=== PATIENT | female | born 1975 | race Caucasian/White ===

== ENCOUNTER 2018-06-24 10:44 | Outpatient (CLI) | payer BC, SELFPAY ==
[2018-06-24 12:53] LABS: TSH (W/Ref FT4) 0.27 uIU/mL (0.358-3.74)
[2018-06-24 13:31] LABS: FREE T4 1.25 ng/dL (0.76-1.46)
== END 2018-06-24 11:04 ==
LOC: LBO 10:45 → LOS 12:39
PROVIDERS: PCP Family Medicine; Visit Provider Family Medicine
DX: E03.9 Hypothyroidism, unspecified (principal)
CPT/HCPCS: 36415; 84439; 84443

== ENCOUNTER 2018-08-31 09:14 | Outpatient (CLI) | payer BC, SELFPAY ==
[2018-08-31 13:28] LABS: TSH (W/Ref FT4) 0.11 uIU/mL (0.358-3.74)
[2018-08-31 13:55] LABS: FREE T4 1.49 ng/dL (0.76-1.46)
== END 2018-08-31 09:34 ==
PROVIDERS: PCP Family Medicine; Visit Provider Family Medicine
DX: E03.9 Hypothyroidism, unspecified (principal)
CPT/HCPCS: 36415; 84439; 84443

== ENCOUNTER 2019-12-23 12:32 | Outpatient (CLI) | payer BC, SELFPAY ==
[2019-12-23 16:26] LABS: TSH (W/Ref FT4) 0.32 uIU/mL (0.36-3.74)
[2019-12-23 16:44] LABS: FREE T4 1.47 ng/dL (0.76-1.46)
== END 2019-12-23 12:52 ==
PROVIDERS: PCP Family Medicine; Visit Provider Family Medicine
DX: E09.39 Drug or chemical induced diabetes mellitus with other diabetic ophthalmic complication (principal)
CPT/HCPCS: 36415; 84439; 84443

== ENCOUNTER 2020-04-13 02:55 | Outpatient (CLI) | payer BC, SELFPAY ==
[2020-04-13 17:18] LABS: Calculated LDL 114 mg/dL (<100); Cholesterol 187 mg/dL (<200); Glucose 105 mg/dL (74-106); HDL Cholesterol 50 mg/dL (40-60); TSH (W/Ref FT4) 1.85 uIU/mL (0.36-3.74); Triglyceride 116 mg/dL (<150)
== END 2020-04-13 03:15 ==
PROVIDERS: PCP Family Medicine; Visit Provider Family Medicine
DX: E03.9 Hypothyroidism, unspecified (principal); E78.5 Hyperlipidemia, unspecified; E66.9 Obesity, unspecified
CPT/HCPCS: 36415; 80061; 82947; 84443

== ENCOUNTER 2020-09-18 10:18 | Outpatient (CLI) | payer BC, SELFPAY ==
[2020-09-20 00:48] LABS: Patient Race White; SARS-CoV-2 RNA Undetected (Undetected); SARS-CoV-2 Specimen Source Nasal
== END 2020-09-18 10:38 ==
PROVIDERS: PCP Family Medicine; Visit Provider Family Medicine
DX: Z11.59 Encounter for screening for other viral diseases (principal)
CPT/HCPCS: U0003

== ENCOUNTER 2021-06-12 05:03 | Outpatient (CLI) | payer BC, SELFPAY ==
[2021-06-12 12:28] LABS: TSH 0.26 uIU/mL (0.36-3.74)
[2021-06-12 13:01] LABS: FREE T4 1.26 ng/dL (0.76-1.46)
== END 2021-06-12 05:04 | disposition home or self-care (01) ==
LOC: LBO 05:03
PROVIDERS: PCP Family Medicine; Visit Provider Internal Medicine Hematology & Oncology
DX: E89.0 Postprocedural hypothyroidism (principal)
CPT/HCPCS: 36415; 84439; 84443

== ENCOUNTER 2021-06-13 11:00 | Outpatient (CLI) | payer BC, SELFPAY ==
[2021-06-13 12:45] LABS: ESR 15 mm/hr (0-20)
[2021-06-13 12:55] LABS: C-Reactive Protein 0.49 mg/dL (0.0-0.3)
[2021-06-13 18:01] LABS: FSH 6.9 mIU/mL (See Note); LH 7.6 mIU/mL (See Note)
== END 2021-06-13 11:01 | disposition home or self-care (01) ==
LOC: LOS 11:00
PROVIDERS: PCP Family Medicine; Referring Provider Family Medicine; Visit Provider Family Medicine
DX: R41.89 Other symptoms and signs involving cognitive functions and awareness (principal); R23.2 Flushing; N95.1 Menopausal and female climacteric states; M25.59 Pain in other specified joint
CPT/HCPCS: 36415; 85652; 83001; 83002; 86140

== ENCOUNTER 2022-09-20 16:24 | Outpatient (REF) | payer BC, SELFPAY ==
--- NOTE | 2022-09-20 15:45 | PAPFT_PTH ---
PATIENT: Imani Hdez LOC: N U#:[id number] AGE/SX: 47/F ROOM: RE09/20/[address]: Deepa Briones : 1975 BED: DIS: 09/20/2022 SPEC #: [id number] RECD: 09/20/22 17:31 STATUS: MORIAH REQ #: [id number] MANUELITO: 09/20/22 15:[address]: Deepa Briones DEPT: [facility] Cyt[facility] RECD BY: Fabi Betancur ENTERED: 09/20/22 17:32 SP TYPE: PAPFT OTHR DR: Nir Gandara MD Tissues: 1 - CX/ENDOCX FOR PAP SMEARS Procedures: PAP THIN PREP/UVM Screening Comments: [id number]
== END 2022-09-20 16:25 | disposition home or self-care (01) ==
LOC: LBN 16:24
PROVIDERS: PCP Family Medicine; Visit Provider Advanced Practice Midwife
DX: Z12.4 Encounter for screening for malignant neoplasm of cervix (principal)
CPT/HCPCS: 88142

== ENCOUNTER → 2022-10-02 00:59 | Outpatient (CLI) | payer BC, SELFPAY ==
--- NOTE | 2022-10-02 07:45 | DI.MAMMO_ITS ---
Exam(s) MAMMO SCREENING EXAM: MAMMO SCREENING CLINICAL HISTORY: screening TECHNIQUE: Bilateral full field digital CC and MLO mammographic images were obtained with 3D tomosyn thesis and utilizing computer aided detection (CAD). COMPARISON: Available for comparison. FINDINGS: Masses/Architectural Distortion: None seen. Microcalcifications: No suspicious pleomorphic-type are seen. Skin Thickening/Nipple Retraction: None. IMPRESSION: 1. No significant interval change with no specific features of malignancy noted. 2. Unless there is more urgent need, screening mammography is recommended, as per [employer] guidelines. BI-RADS Category 1 - Negative Breast Density - Category B - Scattered areas of fibroglandular density Breast density category C or D implies that the patient has dense breast tissue. Dense breast tissue is very common and is not abnormal but dense breast tissue can make it harder to find cancer on a ma mmogram. Also, dense breast tissue may increase their breast cancer risk. This information about the result of the mammogram report was provided to the patient to raise their awareness. Use this report when you speak with the patient about their risks for breast cancer, which includes their family hist ory. At that time, you may recommend for more screening tests (Ultrasound or MRI) as they might be us eful based on their risk. A negative radiographic report should not delay biopsy if a dominant or clinically suspicious mass is present. Up to ten percent of cancers are not identified on mammography. A negative report may reinforce clinical impression. Adenosis and dense breasts may obscure an underlying neoplasm. False positive reports average 6 to 10%. Patient will receive a letter notifying them of these results.
== END ==
PROVIDERS: PCP Family Medicine; Visit Provider Advanced Practice Midwife
DX: Z12.31 Encounter for screening mammogram for malignant neoplasm of breast (principal)
CPT/HCPCS: 77063; 77067

== ENCOUNTER 2022-11-07 04:01 | Outpatient (CLI) | payer BC, SELFPAY ==
[2022-11-07 17:41] LABS: TSH (W/Ref FT4) 0.28 uIU/mL (0.36-3.74)
[2022-11-07 18:02] LABS: FREE T4 1.28 ng/dL (0.76-1.46)
== END 2022-11-07 04:02 | disposition home or self-care (01) ==
PROVIDERS: PCP Family Medicine; Visit Provider Family Medicine
DX: E03.9 Hypothyroidism, unspecified (principal)
CPT/HCPCS: 36415; 84439; 84443

== ENCOUNTER 2023-01-08 07:45 | Day surgery (SDC) | payer BC, SELFPAY ==
--- NOTE | 2023-01-07 14:48 | ANES.PREOP_ITS ---
General Info Date of Service Date Performed: 01/08/23 Height: 5 ft 6 in Weight: 127.119 kg Body Mass Index (BMI): 45.2 Surgical Procedure: Operation Date: 01/08/23 08:35 Proposed Procedure Side Surgeon p Gastroscopy Kellen Barnett MD Meds Allergies and Home Medications Allergies Allergy/AdvReac Type Severity Reaction Status Date / Time No Known Drug Allergies Allergy Verified 01/08/23 08:06 Home Medication Medication Instructions Recorded ipratropium bromide 42 mcg (0.06 2 spray intranasal TID PRN runny 01/22/ %) nasal spray nose #15 mL clotrimazole-betamethasone 1 1 applic topical BID PRN 05/12/ %-0.05 % topical cream intertrigo--breasts/axilla #45 grams cyanocobalamin (vitamin B-12) 1,000 mcg PO DAILY 06/13/21 1,000 mcg tablet (Vitamin B-12) ibuprofen 800 mg tablet 800 mg PO Q8H PRN pain #90 tabs 12/21/21 lorazepam 0.5 mg tablet 0.5 mg PO DAILY PRN anxiety #10 04/27/22 tabs fluoxetine 40 mg capsule 40 mg PO DAILY #90 caps 09/20/22 magnesium 200 mg tablet 200 mg PO DAILY 09/20/22 levothyroxine 150 mcg tablet 150 mcg PO .qod #45 tabs 11/08/22 levothyroxine 175 mcg tablet 175 mcg PO .qod #45 tabs 11/08/22 semaglutide (weight loss) 0.25 0.25 mg (0.5 mL) subcut QWEEK #2 mL 12/24/22 mg/0.5 mL subcutaneous pen injector (Wegovy) semaglutide (weight loss) 0.5 0.5 mg (0.5 mL) subcut QWEEK #2 mL 12/24/22 mg/0.5 mL subcutaneous pen injector (Wegovy) semaglutide (weight loss) 1 mg/0.5 1 mg (0.5 mL) subcut QWEEK #2 mL 12/24/22 mL subcutaneous pen injector (Wegovy) glycopyrrolate 2 mg tablet 2 mg PO TID hyperhydrosis #90 tabs 12/28/22 ondansetron 4 mg disintegrating 4 mg PO Q8H PRN nausea and 12/30/22 tablet vomiting #10 tabs PFSH Active Problems Active Problems: Problem Status Onset Code Barretts esophagus K22.70 History of thyroidectomy, total E89.0 Women's annual routine gynecological examination Z01.419 BMI 45.0-49.9, adult Z68.42 Medial epicondylitis, left elbow M77.02 Lateral epicondylitis of left elbow M77.12 Sebaceous cyst L72.3 Low back pain M54.50 Sweating Arthralgia M25.50 Sweats, menopausal N95.1 Mid back pain M54.9 Trochanteric bursitis of left hip M70.62 Trochanteric bursitis, right hip M70.61 Puncture wound T14.8XXA Dislocation of patellofemoral joint 04/16/12 S83.006A Follicular cyst of skin and subcutaneous tissue 08/24/13 L72.9 History of section Z98.891 Status post knee surgery Z98.890 Synovial cyst of popliteal space 04/16/12 M71.20 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 05/02/17 S72.492K IUD surveillance 05/20/13 Z30.431 Hypothyroidism 05/29/15 E03.9 Chronic pain of left knee M25.562, G89.29 Surgical History Surgical History section X 2 PROCEDURES Bxs on nodes in neck X 3 due to Hx Thyroid Ca Knee surgery 2012 Thyroid Removed - cancer Tobacco Smoking/Tobacco Use Status: Never Passive smoking exposure: No (NO) Alcohol Alcohol Intake: current Alcohol intake frequency: a few times a week Substance Use Substance use: Never Substance use type: does not use Vital Signs and Lab Results Vital Signs Most Recent Vital Signs in EMR: Temp Pulse Resp BP Pulse Ox 36.5 C 94 H 20 128/87 98 01/08/23 07:54 01/08/23 07:54 01/08/23 07:54 01/08/23 07:54 01/08/23 07:54 Lab Results Blood Type / Crossmatch: No Data to Display Complete Blood Count: No Data to Display Complete Metabolic Panel: No Data to Display Liver Function Panel: No Data to Display Coagulation Panel: No Data to Display Cardiac Panel: No Data to Display Arterial Blood Gas: No Data to Display Venous Blood Gas: No Data to Display Pancreas Panel: No Data to Display Thyroid Panel: No Data to Display Infectious Disease: No Data to Display Blood Cultures: No Data to Display Toxicology Panel: No Data to Display Panel: No Data to Display Anesthesia Assessment and Plan Anesthesia History Personal History: No History of Anesthesia Complications Family History: No Family History of Anesthesia Complications Exercise Tolerance Exercise Tolerance: Metabolic Equivalents>4 Cardiac & Pulmonary Exam Cardiac Exam: Normal S1/S2 Heart Sounds Pulmonary Exam: Clear Bilateral Breath Sounds Implantable Cardiac Device Does patient have a Pacemaker or an ICD?: No Airway Exam Known Difficult Airway: No Mallampati Class: 1 Mouth Opening: Normal (> 3cm) Thyromental Distance: Greater than 3 cm Neck Range of Motion: Full ROM Neck Circumference: Normal Teeth Condition: Normal Dentition ASA Classification ASA Score: ASA 3 Emergency Case?: No NPO Status NPO Status: NPO Clears >2 hours, Solids >8 hours Status Status: Negative HCG Anesthesia Plan Resuscitation Status: Full Code Anesthesia Technique: General Anesthesia Airway Planned: Natural Airway Monitors Used: Standard Monitors Preoperative Comments:: 47 yo female for EGD. Sig PMHx: barretts, hypothyroid (s/p thyroidectomy for CA, on replacement), chronic pain, never smoker, occ EtOH, BMI 45 (semaglutide). Previous Anes: - @[facility] mac 3 grade 1, easy mask (102 kg at the time).
[2023-01-08 07:54] VITALS: BP 128/87; PULSE 94; RESP 20; TEMP 36.5; O2SAT 98
[2023-01-08 08:07] VITALS: BMI 45.2
--- NOTE | 2023-01-08 08:12 | W.PM.DSUDISC ---
Date of service: 01/08/23 Time of Service: 09:32 Discharge Plan Disposition Patient Disposition: Home Condition: Good Discharge Details Reason For Visit: Surveillance EGD Attending Provider: Kellen Barnett Primary Care Provider: Nir Gandara Home Meds and New Rx's Prescriptions: New famotidine [Acid Night Coordinator (famotidine)] 20 mg tablet 20 mg PO BID Qty: 60 0RF Continued ipratropium bromide 42 mcg (0.06 %) spray,non-aerosol 2 spray ALON TID PRN (Reason: runny nose) Qty: 15 0RF Rx Instructions: administer into each nostril magnesium 200 mg tablet 200 mg PO DAILY fluoxetine 40 mg capsule 40 mg PO DAILY Qty: 90 3RF Wegovy 0.25 mg/0.5 mL pen injector 0.25 mg subcut QWEEK Qty: 2 0RF Rx Instructions: administer weeks 1 through 4 of therapy Wegovy 0.5 mg/0.5 mL pen injector 0.5 mg subcut QWEEK Qty: 2 0RF Rx Instructions: administer weeks 5 through 8 of therapy Wegovy 1 mg/0.5 mL pen injector 1 mg subcut QWEEK Qty: 2 0RF Rx Instructions: administer weeks 9 through 12 of therapy clotrimazole-betamethasone 1-0.05 % cream 1 applic TP BID PRN (Reason: intertrigo--breasts/axilla) Qty: 45 1RF cyanocobalamin (vitamin B-12) [Vitamin B-12] 1,000 mcg tablet 1,000 mcg PO DAILY ibuprofen 800 mg tablet 800 mg PO Q8H PRN (Reason: pain) Qty: 90 3RF lorazepam 0.5 mg tablet 0.5 mg PO DAILY PRN (Reason: anxiety) Qty: 10 0RF levothyroxine 175 mcg tablet 175 mcg PO .qod Qty: 45 3RF levothyroxine 150 mcg tablet 150 mcg PO .qod Qty: 45 3RF glycopyrrolate 2 mg tablet 2 mg PO TID Qty: 90 2RF ondansetron 4 mg tablet,disintegrating 4 mg PO Q8H PRN (Reason: nausea and vomiting) Qty: 10 0RF Discharge Instructions Instructions: Duodenitis (ED), Diet for Stomach Ulcers and Gastritis (ED), Gastritis (DC), Esophagitis (DC) Additional Instructions: Findings: inflammation in the small intestine, stomach and esophagus Follow up: 2 weeks Medication: Recommend taking pepcid 20 mg 2 x a day for just 30 days Please call if you develop: fevers >101.5 Nausea or Vomiting Abdominal pain that is not transient Rectal bleeding that is more then a tbsp A hard abdomen and inability to pass gas DAY SURGERY UNIT POST ENDOSCOPY INSTRUCTIONS Instructions for everyone who is given Anesthesia: For your safety, please do the following for the next 24 Hours: a. Do not drive or operate dangerous equipment b. Do not drink alcohol beverages or use any recreational drugs for the first 24 hours or while taking pain medications. The medications in your body may have a reaction that can be dangerous. c. Do not make any important decisions or sign any important papers 1. Generally there are no restrictions on your activity after a day or so has gone by, but you may feel a bit fatigued for a few days. 2. After you arrive home you may have a light meal and return to a normal diet as you can tolerate it without feeling sick to your stomach. 3. After surgery, you may feel pain or discomfort. This should be only transient, but if it persists please contact your doctor. 4. If there are any questions regarding the findings of your procedure, please feel free to contact your doctor. 6. If you are unable to contact your doctor with a problem, contact the hospital at [phone]. 7. Continue all your regular medications unless directed otherwise. I understand the above instructions and have no questions. Signature of Patient or Responsible Adult Escort Date/Time Name of Responsible Adult Escort Signature of Nurse Date/Time Stand Alone Forms: Anesthesia Discharge Inst., [facility] (DSU) Referrals: Kellen Barnett MD [ [facility] STAFF PHYSICIAN] - 01/21/23 8:00 am Activity:: Activity as Tolerated Diet:: As Tolerated Discharge Orders Discharge Orders: Discharge Order (Routine); Ordered 01/08/23 Ordered By: Kellen Barnett DS: Diagnosis Discharge Diagnosis (1) Barretts esophagus: Status: Acute
--- NOTE | 2023-01-08 08:13 | ENDO_ITS ---
Date of service: 01/08/23 Time of Service: 09:49 Endoscopy Report DATE OF PROCEDURE: 01/08/23 PRE-OP DIAGNOSIS: Hx of Beckham's POST-OP DIAGNOSIS: same (mild gastric and esophageal inflammation) PROCEDURE: EGD with biopsies SURGEON: Kellen Barnett ANESTHESIA TYPE: General:No Airway (Kevin Ladd, MAHESH) ESTIMATED BLOOD LOSS: 3 PATHOLOGY: other (duodenal bx, gastric and ge junction bx) COMPLICATIONS: None DISPOSITION: same day INDICATIONS: Mrs Hdez is a pleasant 47-year-old female who has a history of Beckham's esophagitis.? She is controlling her symptoms with diet.? She is working on weight loss.? Her last EGD was in 2019 and was negative for Beckham's.? We discussed the reason for doing another surveillance EGD.? I do feel that if this 1 is negative then we might be able to do surveillance less often.? We discussed the EGD in detail as well as the risks and benefits.? Risks, benefits and complications have been reviewed. Complications include but are not limited to bleeding, pain, perforation, sore throat, aspiration, and adverse reaction to the medications.? Questions were entertained and answered to their satisfaction and they wished to proceed. No guarantees were given or implied. FINDINGS: mild inflammation in the duodenum, stomach and at the GE junction PROCEDURE DESCRIPTION: After informed consent was obtained the patient was take to the procedure room and placed in a supine position. Monitors were applied and a time out was done. The patients name, date of , procedure type, allergies to medications and metal in their body was reviewed. A bite block was placed and the patient was sedated. Once sedated and comfortable the gastroscope was advanced through the oropharynx which was grossly normal into the esophagus. The proximal and mid- esophagus were normal. In the distal esophagus there was mild inflammation noted. The scope was advanced into the stomach and through the pylorus into the 3rd portion of the duodenum. The duodenum was noted to be mildly inflammed in the second portion. Biopsies were done. The scope was retracted back into the stomach and biopsies were done to rule out H. pylori. There were no ulcers. The scope was retroflexed. The cardia and fundus were noted to be normal. There was no hiatal hernia noted. The scope was retracted back into the esophagus and biopsies were done of the GE junction to rule out Beckham's. The Z line was regular. The GE junction was at 37 cm. The scope was removed and the patient was woken up and taken back to [facility] in stable condition. Follow up: 2 weeks
[2023-01-08] MEDS: Lactated Ringers 1,000 ML 80 ML IV (08:28)
--- NOTE | 2023-01-08 08:48 | STOM_PTH ---
PATIENT: Imani Hdez LOC: [facility] U#:[id number] AGE/SX: 47/F ROOM: RE01/08/[address]: Kellen Barnett MD : 1975 BED: DIS: 01/08/2023 SPEC #: [id number] RECD: 01/08/23 12:36 STATUS: MORIAH RE #: [id number] MANUELITO: 01/08/23 08:[address]: Kellen Barnett DEPT: Surgical Specimen RECD BY: Fabi Betancur ENTERED: 01/08/23 12:38 SP TYPE: STOMACH OTHR DR: Nir Gandara MD Tissues: 1 - BIOPSY BOWEL 2 - STOMACH BIOPSY 3 - STOMACH BIOPSY 4 - ESOPHAGUS BIOPSY Procedures: GROSS AND MICRO LEVEL 4 Comments: [id number]
[2023-01-08 09:06] VITALS: BP 110/77; PULSE 98; RESP 18; TEMP 36.6; O2SAT 95
--- NOTE | 2023-01-08 09:12 | W.ANESPOSTOP ---
Postoperative Evaluation Date, Time and Location Date Performed: 01/08/23 Time Performed: 09:12 Patient Location: Day Surgery Unit Vital Signs Most Recent Imported Vital Signs: Most Recent Vital Signs Temp Pulse Resp BP Pulse Ox 36.6 C 98 H 18 110/77 95 01/08/23 09:06 01/08/23 09:06 01/08/23 09:06 01/08/23 09:06 01/08/23 09:06 Pain Score Most Recent Pain Score: Most Recent Pain Score Pain Level 0 01/08/23 09:06 Assessment Mental Status: Awake (Alert & Oriented to Patient Baseline) Airway and Respiratory Function: Patent airway with normal (patient baseline) respiratory exam Cardiovascular Function: Hemodynamically Stable Hydration Status: Adequately Hydrated Nausea & Vomiting: No Nausea or Vomiting Pain: Pt. Denies Any Pain Peripheral Nerve Block: Patient did not receive a nerve block
[2023-01-08 09:34] VITALS: BP 116/74; PULSE 82; RESP 18; TEMP 36.4; O2SAT 100
== END 2023-01-08 10:00 | disposition home or self-care (01) ==
PROVIDERS: PCP Family Medicine; Visit Provider Surgery
PROC: 0DJ68ZZ Inspection of Stomach, Via Natural or Artificial Opening Endoscopic (ICD-10-PCS; CPT 43235; principal; 2023-01-08 08:30)
DX: K20.90 Esophagitis, unspecified without bleeding (principal); K29.70 Gastritis, unspecified, without bleeding; K29.80 Duodenitis without bleeding; Z85.850 Personal history of malignant neoplasm of thyroid; E89.0 Postprocedural hypothyroidism; K31.89 Other diseases of stomach and duodenum
CPT/HCPCS: 43239; 81025; 88305; J2704

== ENCOUNTER 2023-05-23 02:23 | Outpatient (CLI) | payer BC, SELFPAY ==
[2023-05-23 16:18] LABS: TSH 1.13 uIU/mL (0.36-3.74)
[2023-05-26 09:44] LABS: Thyroglobulin Antibody <15 U/mL (<=60)
[2023-05-26 19:16] LABS: Thyroglobulin Antibody <1.8 IU/mL (<1.8); Thyroglobulin Tumor Marker <0.1 ng/mL
== END 2023-05-23 02:24 | disposition home or self-care (01) ==
PROVIDERS: PCP Family Medicine; Visit Provider Internal Medicine
DX: Z85.850 Personal history of malignant neoplasm of thyroid (principal); E03.9 Hypothyroidism, unspecified
CPT/HCPCS: 36415; 84432; 84443; 86800

== ENCOUNTER 2023-12-16 03:35 | Outpatient (CLI) | payer BC, SELFPAY ==
[2023-12-16 14:03] LABS: Calculated LDL 97 mg/dL (<100); Cholesterol 168 mg/dL (<200); HDL Cholesterol 56 mg/dL (40-60); TSH (W/Ref FT4) 0.13 uIU/mL (0.36-3.74); Triglyceride 77 mg/dL (<150); Vitamin B12 449 pg/mL (193-986)
[2023-12-16 14:20] LABS: FREE T4 1.31 ng/dL (0.76-1.46)
== END 2023-12-16 03:36 | disposition home or self-care (01) ==
PROVIDERS: PCP Family Medicine; Visit Provider Family Medicine
DX: D64.9 Anemia, unspecified (principal); E78.5 Hyperlipidemia, unspecified; E03.9 Hypothyroidism, unspecified
CPT/HCPCS: 36415; 80061; 82607; 84439; 84443

== ENCOUNTER 2024-11-17 04:02 | Outpatient (CLI) | payer OTHER, SELFPAY ==
[2024-11-17 09:27] LABS: Glucose 81 mg/dL (74-106); TSH (W/Ref FT4) 0.06 uIU/mL (0.36-3.74)
[2024-11-17 09:46] LABS: FREE T4 1.35 ng/dL (0.76-1.46)
== END 2024-11-17 04:03 | disposition home or self-care (01) ==
LOC: LBO 04:02
PROVIDERS: PCP Family Medicine; Visit Provider Family Medicine
DX: E03.9 Hypothyroidism, unspecified (principal); R73.9 Hyperglycemia, unspecified
CPT/HCPCS: 36415; 82947; 84439; 84443

== ENCOUNTER 2025-03-02 03:24 | Outpatient (CLI) | payer OTHER, SELFPAY | END 2025-03-02 03:25 | disposition home or self-care (01) | LOC: LBO 03:24 | PROVIDERS: PCP Family Medicine; Visit Provider Family Medicine | DX: E03.9 Hypothyroidism, unspecified (principal) | CPT/HCPCS: 36415; 84439; 84443 ==

== ENCOUNTER 2025-04-07 10:21 | Outpatient (CLI) | payer OTHER, SELFPAY ==
--- NOTE | 2025-04-07 12:35 | DI.RAD_ITS ---
Exam(s) XR HIP PELVIS ADULT BL EXAM: XR HIP PELVIS ADULT BL CLINICAL HISTORY: akil hip/groin pain,m25.551,m25.552. TECHNIQUE: 2D digital imaging was performed of the pelvis and bilateral hips. Three images were obtained. AP pelvis and lateral views of both hips were obtained. COMPARISON: No exams were available for comparison FINDINGS: BONES: No acute fracture is present. No bony destructive lesion is seen. JOINTS: No dislocation present. The joint spaces are well maintained. SOFT TISSUE: Normal. There is an IUD in the pelvis. IMPRESSION: Unremarkable radiographs of bilat hips. Unremarkable radiographs of the pelvis DATA REPOSITORY: RADIATION DOSE DELIVERED:
== END 2025-04-07 10:41 ==
LOC: DI 10:25
PROVIDERS: PCP Family Medicine; Visit Provider Family Medicine
DX: M25.551 Pain in right hip (principal); M25.552 Pain in left hip
CPT/HCPCS: 73521

== ENCOUNTER → 2025-10-14 | Outpatient (CLI) | payer OTHER, SELFPAY ==
--- NOTE | 2025-10-14 07:45 | DI.MAMMO_ITS ---
Exam(s) MAMMO SCREENING EXAM: MAMMO SCREENING CLINICAL HISTORY: Z12.39 SCREENING. TECHNIQUE: Bilateral full field digital CC and MLO mammographic images were obtained with 3D tomosynthesis and utilizing computer aided detection (CAD). COMPARISON: Prior mammograms were reviewed. FINDINGS: There has been no significant change in the appearance and distribution of the fibroglandular tissue. There are no CAD designations. There are no new spiculated masses nor malignant appearing microcalcification groups. There is no significant architectural distortion nor skin thickening-retraction. IMPRESSION: No radiographic evidence of malignancy. BI-RADS Category 1 - Negative Breast Density - Category B - There are scattered areas of fibroglandular density. Breast density Category C or D implies that the patient has dense breast tissue. Dense breast tissue can make it harder to find cancer on a mammogram. Dense breast tissue is also associated with an increased risk of breast cancer. This information about the result of the mammogram report was provided to the patient to raise their awareness. Use this report when you speak with the patient about their risks for breast cancer, which includes their family history. At that time, you may recommend additional screening tests (Ultrasound or MRI) as these tests may add significant information. A negative radiographic report should not delay biopsy if a dominant or clinically suspicious mass is present. Up to ten percent of cancers are not identified on mammography. A negative report may reinforce clinical impression. Adenosis and dense breasts may obscure an underlying neoplasm. False positive reports average 6 to 10%. Patient will receive a letter notifying them of these results.
== END ==
LOC: DI
PROVIDERS: PCP Family Medicine; Visit Provider Nurse Practitioner Women's Health
DX: R68.89 Other general symptoms and signs (principal); L29.9 Pruritus, unspecified
CPT/HCPCS: 77063; 77067